=== PATIENT | male | born 1975 | race Caucasian/White ===

== ENCOUNTER 2018-08-06 10:07 | Day surgery (SDC) | payer BC ==
[2018-08-06] MEDS ORDERED: CIPROFLOXACIN 400MG/D5W 200 ML (12:00)
[2018-08-06] MEDS ORDERED: LIDOCAINE 2% (SDV) 5 ML INJ (12:01)
[2018-08-06] MEDS ORDERED: PROPOFOL 20 ML (12:01)
[2018-08-06] MEDS ORDERED: MIDAZOLAM 1 MG/ML 2 ML INJ (12:02)
== END 2018-08-06 13:44 | disposition home or self-care (01) ==
LOC: GIL 10:07
DX: I85.11 Secondary esophageal varices with bleeding (principal); K31.89 Other diseases of stomach and duodenum; K25.3 Acute gastric ulcer without hemorrhage or perforation
CPT/HCPCS: 43244

== ENCOUNTER 2019-02-17 06:03 | Day surgery (SDC) | payer BC ==
[2019-02-17] MEDS ORDERED: FENTAnyl 50 MCG/ML VIAL IV ×2 (07:30)
[2019-02-17] MEDS ORDERED: PROPOFOL 20 ML (07:38)
[2019-02-17] MEDS ORDERED: CIPROFLOXACIN 400MG/D5W 200 ML (08:07)
== END 2019-02-17 13:02 | disposition home or self-care (01) ==
LOC: GIL 06:03 → SDS 06:03 → GIL 06:03
DX: Z12.11 Encounter for screening for malignant neoplasm of colon (principal); D12.4 Benign neoplasm of descending colon; D12.2 Benign neoplasm of ascending colon; I85.00 Esophageal varices without bleeding; K31.89 Other diseases of stomach and duodenum; E11.9 Type 2 diabetes mellitus without complications; I10 Essential (primary) hypertension; F17.200 Nicotine dependence, unspecified, uncomplicated; E78.5 Hyperlipidemia, unspecified
CPT/HCPCS: 43244; 82962; 88305